=== PATIENT | male | born 1980 | race Caucasian/White ===

== ENCOUNTER 2024-09-10 21:52 | Emergency (ER) | payer BC, OTHER, SELFPAY ==
[2024-09-10 21:53] VITALS: PULSE 88; O2SAT 98
--- NOTE | 2024-09-10 22:13 | PC.NURSE ---
CALLED PATIENT IN LOBBY, OUTSIDE, AND RESTROOM, NO ANSWER.
== END 2024-09-10 22:28 | disposition left against medical advice (07) ==
LOC: SERX 22:30
PROVIDERS: Emergency Provider Emergency Medicine
DX: Z53.21 Procedure and treatment not carried out due to patient leaving prior to being seen by health care provider (principal)